=== PATIENT | female | born 1950 | race Caucasian/White ===

== ENCOUNTER 2019-08-28 04:51 | Inpatient (IN) ==
--- NOTE | 2019-08-08 11:22 | Anesthesiology Consultation ---
Date of Service August 08, 2019 Assessment & Plan Chart Review Chart Review: Acceptable Risk for Surgery, Pending: Refer to Additional Notes / Consult section (PAT [email or web address]) and Patient seen in Pre Admission Testing Consults Requested none ASA ASA3 Proposed Anesthesia Anesthesia Type: General and MAC Spinal Regional Regional Laterality: Left Site: Adductor Canal History Surgery Operation Date: 08/28/19 13:45 Proposed Procedures p Left Total Knee Arthroplasty - Wilman Wild MD Height/Weight Height: 5 ft 3 in Weight: 96.2 kg Allergies Allergy/AdvReac Type Severity Reaction Status Date / Time naproxen Allergy Severe can't Unverified 08/05/19 11:50 breath Penicillins Allergy Severe can't Unverified 08/05/19 11:50 breath cyclobenzaprine Allergy Intermediate palpitation Unverified 08/05/19 11:50 s adhesive Allergy Mild rash Unverified 08/05/19 11:50 trazodone Allergy Unknown DOES NOT Verified 08/05/19 11:50 KNOW REACTION, ONLY THAT IT WAS BAD! codeine AdvReac Mild insomnia Unverified 08/05/19 11:50 Medications Home Medications Medication Instructions Recorded Confirmed Last Taken Red [place] 1 cap PO DAILY PRN 08/05/19 08/05/19 Unknown Red Raspberry 1 cap PO DAILY PRN 08/05/19 08/05/19 Unknown atorvastatin 20 mg PO HS 08/05/19 08/05/19 Unknown buspirone 15 mg PO BID 08/05/19 08/05/19 Unknown calcium carbonate [Calcium 500] 500 mg PO QAM 08/05/19 08/05/19 Unknown escitalopram oxalate 10 mg PO QAM 08/05/19 08/05/19 Unknown escitalopram oxalate 20 mg PO QAM 08/05/19 08/05/19 Unknown glipizide 5 mg PO QAM 08/05/19 08/05/19 Unknown herbal drugs 2 tab PO QAM 08/05/19 08/05/19 Unknown levothyroxine 50 mcg PO QAM 08/05/19 08/05/19 Unknown lisinopril 5 mg PO QAM 08/05/19 08/05/19 Unknown vitamin B complex 1 tab PO DAILY PRN 08/05/19 08/05/19 Unknown vitamin E 800 unit PO QAM 08/05/19 08/05/19 Unknown Past Medical History Medical History Anxiety and depression Cardiac murmur Degenerative disc disease Diabetes mellitus, type 2 Fatty liver Hyperlipidemia Hypothyroidism Osteoarthritis Proteinuria "REASON FOR TAKING LISINOPRIL" Skin cancer LEFT SHOULDER AREA Sleep apnea CPAP USED Exercise / Class Metabolic Activity III < 4 Walking/Shop/Light housework Past Family History Family History Aunt Family history of diabetes mellitus Mother Family history of diabetes mellitus Past Surgical History Surgical History H/O bilateral salpingo-oophorectomy History of colonoscopy History of discectomy LUMBAR History of tooth extraction History of vaginal hysterectomy Past Anesthesia History No Hx of Anesthesia Complications and No Family Hx of Anesthesia Complications History of PONV No Hx of PONV and No Hx of Motion Sickness Social History Smoking Status: Former smoker Do You Dip or Chew Tobacco: No Smoking End Date: EARLY Hx Alcohol Use: No Hx Substance Use: No substance use type: does not use Physical Exam Vital Signs Last Vital Signs Temp 36.8 C 08/08/19 11:10 Pulse 57 L 08/08/19 11:10 Resp 18 08/08/19 11:10 BP 115/77 08/08/19 11:10 Pulse Ox 99 08/08/19 11:10 Constitutional + obese ENMT Mouth: no dentition abnormality Thyromental Distance: < 3.5 Finger Breadths Mallampati Class: II Neck normal visual inspection and trachea midline; neck extension not limited Respiratory normal respiratory effort Auscultation: lungs clear to auscultation bilaterally Cardiovascular Rate/Rhythm: regular rate and regular rhythm Heart Sounds: no murmur Vessels: no carotid bruit Musculoskeletal Spine: normal cervical ROM Neurologic moves all extremities Motor/Sensory: no sensory deficit Psychiatric Orientation: alert and oriented x 3 Testing Electrocardiogram Date: 08/08/19 Findings: + SB @ (at 56)
--- NOTE | 2019-08-08 12:09 | XRay Report ---
XR chest Pre-admission PA/Lat CLINICAL HISTORY: Preoperative chest COMPARISON STUDY: 03/17/2014 FINDINGS: The cardiac and mediastinal contours are normal. There is no evidence of focal pulmonary co nsolidation. There is no evidence of failure. No pleural effusions are visualized.[ IMPRESSION: No active disease in the chest. Electronically signed by: Miles Ahumada M.D. 08/08/2019 12:08 PM
[2019-08-08 14:50] LABS: Appearance Urine Cloudy (Clear); Bacteria Urine Automated 1+ (Negative); Bilirubin Urine Negative (Negative); Blood Urine Negative (Negative); Color Urine Yellow; Epithelial Cell Urine Auto >30 /lpf (0-5); Glucose Urine UA Negative (Negative); Ketones Urine Trace (Negative); Leukocyte Esterase Urine Trace (Negative); Nitrite Urine Negative (Negative); Protein Urine Negative (Negative); Specific Gravity Urine 1.028 (1.000-1.030); Urobilinogen Urine Negative (Negative)
[2019-08-08 14:54] LABS: Albumin Level 3.3 gm/dl (3.4-5.0); BUN Creatinine Ratio 19.5 (10-20); Calcium 8.7 mg/dl (8.5-10.1); Creatinine Clr Calc Pharmacy 72.6 ml/min; Est GFR (African American) 84.6; Potassium 3.8 mmol/L (3.5-5.1)
[2019-08-08 15:00] LABS: Hematocrit (blood only) 38.7 % (37-47); Hemoglobin 12.3 g/dL (12.0-16.0); Lymphocytes % (auto) 23.1 %; Mean Corpuscular Hemoglobin 30.6 pg (25-34); Mean Corpuscular Hgb Conc 31.8 g/dL (32-36); Mean Corpuscular Volume 96.3 fL (80-100); Mean Platelet Volume 12.6 fL (7.4-10.4); Neutrophils % (auto) 69.5 %; Platelet Count 154 K/uL (130-400); RDW Coefficient of Variation 14.7 % (11.5-14.5); RDW Standard Deviation 51.8 fL (36.4-46.3); Red Blood Count 4.02 M/uL (4.2-5.4); White Blood Count 6.75 K/uL (4.8-10.8)
[2019-08-08 15:01] LABS: Basophils # (auto) 0.03 K/uL (0-0.2); Basophils % (auto) 0.4 %; Eosinophils # (auto) 0.07 K/uL (0-0.5); Immature Granulocytes # (auto) 0.01 K/uL (0.00-0.02); Immature Granulocytes % (auto) 0.1 %; Lymphocytes # (auto) 1.56 K/uL (1.2-3.4); Monocytes % (auto) 5.9 %; Neutrophils # (auto) 4.68 K/uL (1.4-6.5)
[2019-08-08 15:02] LABS: Partial Thromboplastin Ratio 0.9
[2019-08-08 15:10] LABS: Calcium Oxalate Crystals Urine Present (None Prsent)
[2019-08-09 07:16] LABS: Estimated Average Glucose 148 mg/dl; Hemoglobin A1C 6.8 % (4.5-5.6)
--- NOTE | 2019-08-27 22:12 | History and Physical Report ---
DATE OF ADMISSION: 08/28/2019 CHIEF COMPLAINT: Chronic left knee pain and instability. HISTORY OF PRESENT ILLNESS: This is a 68-year-old female patient of Dr. Wild'goran complaining of chronic left knee pain, longstanding, now progressively getting worse. She has failed conservative treatments including intraarticular injections, Tylenol, home exercise program and the use of a brace. The patient has increased pain with weightbearing activities and her pain does interfere with her activities of daily living. The patient has been diagnosed with end-stage osteoarthritis per clinical and radiographic exams and wishes to proceed with a left total knee arthroplasty. PAST MEDICAL HISTORY: Heart murmur, sleep apnea with use of CPAP, anxiety, diabetes mellitus, hypothyroidism, spine problems, sciatica, obesity, dental issues. SOCIAL HISTORY: Nonsmoker, nondrinker. PAST SURGICAL HISTORY: Hysterectomy and back surgery. FAMILY HISTORY: Noncontributory. REVIEW OF SYSTEMS: Chronic left knee pain and instability. Otherwise, denies any shortness of breath, chest pain, nausea, vomiting, or any other joint complaints. MEDICATIONS: Escitalopram 20 mg daily, buspirone 15 mg twice daily, levothyroxine 50 mcg daily, glipizide 5 mg daily, lisinopril 5 mg daily, atorvastatin 20 mg daily, calcium 500 daily, vitamin E daily, vitamin B12 daily. ALLERGIES: INCLUDE METFORMIN, NAPROSYN, PENICILLIN, TRAZODONE, AND FLEXERIL. PLEASE NOTE PENICILLIN IS ANAPHYLAXIS, TRAZODONE IS ANAPHYLAXIS, FLEXERIL IS ANAPHYLAXIS. PHYSICAL EXAMINATION: GENERAL: Well-developed, well-nourished, 68-year-old female in no acute distress. She is alert and oriented x3 and pleasant. HEENT: Normocephalic, atraumatic. Extraocular motions are intact. Pupils are equal and reactive to light. HEART: Regular rate and rhythm, no murmurs. LUNGS: Clear. ABDOMEN: Soft, nontender, bowel sounds present. EXTREMITIES: Left knee reveals a varus deformity with medial joint line tenderness. She has a mild effusion. She has limited range of motion of negative 5 to 95 degrees. She has 5/5 strength with pain. NEUROLOGIC: Neurovascularly, she is intact in her left lower extremity. DIAGNOSES: Left knee end-stage osteoarthritis, history of heart murmur, sleep apnea with the use of CPAP, anxiety, diabetes mellitus, hypothyroidism, spine problems, sciatica, obesity, dental issues. PLAN: The patient was advised of her diagnosis. Indications, risks, benefits, postop course have all been reviewed. The patient wished to proceed with a left total knee arthroplasty. Necessary consent forms, preoperative testing, and clearances will be obtained.
[2019-08-28] MEDS ORDERED: ROPIVACAINE 0.5% HCL/PF 150 MG, BUPIVACAINE 0.5% MPF 30 ML, EPINEPHrine 30MG/30ML (OR U... INFIL SCH (06:00)
[2019-08-28] MEDS ORDERED: CeleBREX 200 MG CAP PO SCH (06:00)
[2019-08-28] MEDS ORDERED: GABAPENTIN 300 MG CAP PO SCH (06:00)
[2019-08-28] MEDS ORDERED: VANCOMYCIN HCL 1,500 MG in SODIUM CHLORIDE 0.9% 500 ML IV SCH ×2 (06:00→18:00)
[2019-08-28] MEDS ORDERED: LR 500ML BOLUS IV SCH (06:00)
[2019-08-28] MEDS ORDERED: METOCLOPRAMIDE HCL 10 MG TABLET PO SCH (06:00)
[2019-08-28] MEDS ORDERED: FAMOTIDINE 20 MG TAB PO SCH (06:00)
[2019-08-28] MEDS ORDERED: TRANEXAMIC ACID 1,000 MG **IV Pre-op IV SCH (06:00)
[2019-08-28] MEDS ORDERED: ACETAMINOPHEN 500 MG TAB PO SCH (06:00)
[2019-08-28] MEDS ORDERED: ROPIVACAINE 0.5% HCL/PF 150 MG, BUPIVACAINE 0.5% MPF 30 ML, EPINEPHrine 30MG/30ML (OR U... INSTIL SCH (06:00)
[2019-08-28] MEDS ORDERED: TRANEXAMIC ACID 1,000 MG **IV Intra-op IV SCH (06:30)
[2019-08-28] MEDS ORDERED: BUPIVACAINE 0.5 % 5 MG/1 ML PF 10ML VIAL ONE (06:31)
[2019-08-28] MEDS ORDERED: ROPIVACAINE 0.5% 5 MG/ML 30 ML VIAL ONE (06:31)
[2019-08-28] MEDS ORDERED: PROPOFOL IV EMULSION 10 MG/ML 20 ML VIAL IV ONE ×2 (06:39→07:58)
[2019-08-28] MEDS ORDERED: LIDOCAINE HCL 2% 2 ML VIAL/AMP(20MG/ML) INFIL ONE (06:39)
[2019-08-28] MEDS ORDERED: MIDAZOLAM HCL 1 MG/ML 2ML VIAL ONE (06:40)
[2019-08-28] MEDS ORDERED: fentaNYL citrate 100 MCG/2 ML VIAL ONE (06:40)
[2019-08-28] MEDS ORDERED: BACITRACIN INJ 50,000 UNIT VIAL ONE (06:40)
--- NOTE | 2019-08-28 07:10 | History & Physical Bridge Note ---
Date of Service August 28, 2019 History & Physical Bridge Note I have examined the patient, reviewed the History & Physical and in the interval since the performance of the History & Physical I have noted the following changes of clinical significance: no changes noted
[2019-08-28] MEDS ORDERED: ePHEDrine sulfate 50 MG/ML AMP IV PRN (07:29)
[2019-08-28] MEDS ORDERED: ATROPINE SULFATE 0.1 MG/ML 10ML SYR IV PRN (07:29)
[2019-08-28] MEDS ORDERED: ePHEDrine sulfate 50 MG/ML SYR ONE (07:58)
[2019-08-28] MEDS ORDERED: PHENYLEPHRINE 100MCG/ML 5ML SYR ONE (07:58)
--- NOTE | 2019-08-28 09:01 | Post Operative Brief Note ---
Immediate Post Op Note v1 Date of Surgery August 28, 2019 Pre & Post Diagnosis Operation Date: 08/28/19 07:00 Pre-Op Diagnosis: Primary Osteoarthritis, Left Knee Post-Op Diagnosis: Primary Osteoarthritis, Left Knee I personally identified the patient: Yes Procedure Operation Date: 08/28/19 07:00 Actual Procedures p Left Total Knee Arthroplasty(Left) - Wilman Wild MD Surgeon Wilman Wild MD Wood Gouger Murali MUNOZ Estimated Blood Loss 5 Findings Consistent with Post-Op Diagnosis Specimens Bone cuts Drains Hemovac Drain Anesthesia Type MAC Spinal Regional Complications none Disposition Accompanied Patient To Recovery: No Disposition: Recovery Room Overlapping Procedure I was present for: the critical portions of procedure.
--- NOTE | 2019-08-28 09:50 | XRay Report ---
TWO VIEWS LEFT KNEE CLINICAL HISTORY: Postoperative examination. FINDINGS: AP and crosstable lateral portable views of the left knee are obtained. A left knee arthrop lasty is in near anatomic alignment. There has been undersurface remodeling of the patella. No acute fracture is seen. There are expected postoperative changes around the knee including skin clips, a hernandez rgical drain, soft tissue edema, and subcutaneous gas. IMPRESSION: Expected postoperative changes status post left knee arthroplasty. No acute fracture is s een. Electronically signed by: Alvin Saxena M.D. 08/28/2019 9:48 AM
[2019-08-28] MEDS ORDERED: NALOXONE HCL 0.4 MG/1 ML VIAL/CARP IV PRN (11:10)
[2019-08-28] MEDS ORDERED: ONDANSETRON INJ 2 MG/ML 2 ML VIAL IV PRN (11:10)
[2019-08-28] MEDS ORDERED: VITAMIN B COMPLEX TAB PO PRN (11:10)
[2019-08-28] MEDS ORDERED: RED RASPBERRY PO PRN (11:10)
[2019-08-28] MEDS ORDERED: bisacodyL 10 MG SUPP PR PRN (11:10)
[2019-08-28] MEDS ORDERED: RED CLOVER PO PRN (11:10)
[2019-08-28] MEDS ORDERED: MAGNESIUM HYDROXIDE SUSP 30 ML UDC PO PRN (11:10)
[2019-08-28] MEDS ORDERED: VANCOMYCIN CONSULT ACTIVE PRN (11:10)
[2019-08-28] MEDS ORDERED: PHARMACY GLYCEMIC MGMT CONSULT PRN (11:21)
--- NOTE | 2019-08-28 12:12 | Consultation ---
Date of Consultation August 28, 2019 Assessment & Plan (1) S/P total knee arthroplasty: Post op day# 0 S/P Left TKA by Dr Torri RIVAS #5ml -pain management per ortho -wound management per ortho -PT/OT as appropriate -DVT prophylaxis per ortho - Xarelto 10mg daily -incentive spirometry -monitor H&H for acute blood loss anemia (2) Diabetes mellitus, type 2: A1c: 6.8 on 08/08/19 -Hold glipizide -Glycemic pharmacy consulted by ortho, appreciate pharmacy recommendations (3) HTN (hypertension): Stable -Will hold tomorrow morning lisinopril and monitor BP, renal functions (4) Hypothyroidism: TSH: 2.5 on 05/19/19 -Continue levothyroxine (5) Hyperlipidemia: -Continue atorvastatin (6) Sleep apnea: -Continue CPAP HS (7) Anxiety and depression: -Continue escitalopram, buspirone DVT Prophylaxis -Xarelto 10mg daily per ortho Disposition per primary service Follows with Rochelle Varner PA-C for routine care Pt was seen and care coordinated with Dr Booker. See addendum Thank you for this consultation. We will follow the patient with you during their hospital stay. You can reach a member of the [facility] via pager @ [phone]. Supervising Physician Co-Signing Physician Notes HISTORY: Record reviewed. Patient interviewed and examined in her room. Care coordinated with Tyra Ojeda PA-C. Please refer to her documentation for patient's history. Briefly, 68-year-old female who underwent left total knee arthroplasty earlier today. History of hypertension, sleep apnea, diabetes, and other problems as noted. Doing well postoperatively. No chest pain, cough, shortness of breath, nausea, vomiting. Postop pain well controlled. EXAM: General- no distress Lungs- clear to auscultation; no respiratory distress Cardiovascular- RRR; no murmur; no gallop; no JVD; no pretibial edema Abdomen- + bowel sounds, soft, nontender Extremities- no cyanosis; no calf tenderness; TEDS and SCDs applied Neuro- alert, oriented Skin- warm & dry DATA: Hemoglobin A1c was 6.8 on 08/08/2019. Glucose 143 at 1227 this afternoon. Other lab studies as noted. Chest x-ray performed on 08/08/2019 was unremarkable. EKG performed 08/08/2019 reviewed and demonstrated sinus bradycardia at 56/minute, no acute changes. ASSESSMENT AND PLAN: S/P left TKA. Doing well postop. Management of hypertension, sleep apnea, and DM as outlined in TAMMY Pitts's documentation. Thank you for this consultation. We will follow the patient with you during their hospital stay. My cell # is [phone]. You can reach a member of the [facility] Team 11/06 via pager @ [phone]. History of Present Illness Reason for Consultation: Post op medical management Attending Physician: Wilman Wild MD History of Present Illness Pt is 68 y/o F with PMH DM II, hypothyroidism, depression, ALISSON, obesity seen in medical consultation for post op medication management S/P L TKA today by Dr Wild. Post-op pt reports still with BLE numbness. Starting to feel like she can move her toes. No pain currently. No urination or passing flatus yet. Denies fever/chills, diaphoresis, N/V/D, GOFF, dizziness, syncope, vision changes, neck pain, CP, SOB, orthopnea, palpitations, cough, sore throat, choking, otalgia, rhinorrhea, abdominal pain, extremity edema, rashes. Allergies Allergy/AdvReac Type Severity Reaction Status Date / Time naproxen Allergy Severe can't Unverified 08/28/19 05:26 breath Penicillins Allergy Severe can't Unverified 08/28/19 05:26 breath cyclobenzaprine Allergy Intermediate palpitation Unverified 08/28/19 05:26 s adhesive Allergy Mild rash Unverified 08/28/19 05:26 trazodone Allergy Unknown DOES NOT Verified 08/28/19 05:26 KNOW REACTION, ONLY THAT IT WAS BAD! codeine AdvReac Mild insomnia Unverified 08/28/19 05:26 Home Medications Home Medications Medication Instructions Recorded Confirmed Type Red [place] 1 cap PO DAILY PRN 08/05/19 08/28/19 History Red Raspberry 1 cap PO DAILY PRN 08/05/19 08/28/19 History atorvastatin 20 mg PO HS 08/05/19 08/28/19 History buspirone 15 mg PO BID 08/05/19 08/28/19 History calcium carbonate [Calcium 500] 500 mg PO QAM 08/05/19 08/28/19 History escitalopram oxalate 10 mg PO QAM 08/05/19 08/28/19 History escitalopram oxalate 20 mg PO QAM 08/05/19 08/28/19 History glipizide 5 mg PO QAM 08/05/19 08/28/19 History herbal drugs 2 tab PO QAM 08/05/19 08/28/19 History levothyroxine 50 mcg PO QAM 08/05/19 08/28/19 History lisinopril 5 mg PO QAM 08/05/19 08/28/19 History vitamin B complex 1 tab PO DAILY PRN 08/05/19 08/28/19 History vitamin E 800 unit PO QAM 08/05/19 08/28/19 History Patient History Medical History HTN (hypertension) (Chronic) Degenerative disc disease (Chronic) Osteoarthritis (Chronic) Fatty liver (Chronic) Diabetes mellitus, type 2 (Chronic) Hypothyroidism (Chronic) Skin cancer (Chronic) LEFT SHOULDER AREA Anxiety and depression (Chronic) Hyperlipidemia (Chronic) Sleep apnea (Chronic) CPAP USED Cardiac murmur Proteinuria "REASON FOR TAKING LISINOPRIL" Surgical History H/O bilateral salpingo-oophorectomy (Chronic) History of vaginal hysterectomy (Chronic) History of discectomy (Chronic) LUMBAR History of colonoscopy (Chronic) History of tooth extraction (Chronic) Family History Aunt Family history of diabetes mellitus Mother Family history of diabetes mellitus Social History Preferred Language: Welsh Communication Ability: Effective Telegraph Equipment Maintainer Required: No Beliefs That Will Affect Care: None Current Living Situation: Spouse Other Information That Helps Us Care for You: No Feels Safe at Home: Yes Safety Concerns: Feels Safe At This Time Smoking Status: Former smoker Do You Dip or Chew Tobacco: No ; Smoking End Date: EARLY 20'S ; Second Hand Exposure: Yes ; Tobacco Cessation Education Requested by Patient: No Hx Alcohol Use: No Hx Substance Use: No Review of Systems Review of Systems: All systems reviewed & are unremarkable except as noted in HPI & below Physical Exam Physical Exam: General: no acute distress, obese Head: normocephalic, atraumatic Eyes: EOM's intact, conjunctiva non-injected, anicteric ENT: normal inspection external ears, nose, mucous membranes moist Neck: supple, trachea midline Lungs: clear, no respiratory distress, no wheezing/rhonchi/rales CV: RRR, no murmur, no pretibial edema Abd: normal BS, soft, non-tender Ext: no calf tenderness; Left lower leg with jj wrap and bandage in place; distal pulses palpable, able to wiggle toes Neuro: A&O x 3, no focal deficits noted, normal affect Skin: warm, dry Results & Data Vital Signs (Past 12 Hours) Vital Signs Temp Pulse Pulse Resp BP BP Pulse Ox 08/28/19 11:40 36.6 C 61 18 113/73 93 08/28/19 11:10 36.7 C 67 17 123/74 94 08/28/19 10:50 64 16 102/67 98 08/28/19 10:40 63 16 112/66 95 08/28/19 10:30 63 18 112/71 92 08/28/19 10:20 64 17 110/71 92 08/28/19 10:10 64 18 119/71 92 08/28/19 10:00 62 16 123/68 92 08/28/19 09:50 61 16 126/70 94 08/28/19 09:40 62 16 117/70 94 08/28/19 09:30 65 18 114/70 96 08/28/19 09:23 36 C L 71 18 106/71 98 08/28/19 05:40 36.5 C 53 L 18 130/71 96
[2019-08-28] MEDS ORDERED: DEXTROSE 50% 50 ML SYRINGE IV PRN (12:30)
[2019-08-28] MEDS ORDERED: GLUCOSE 40% GEL 15 GM TUBE PO PRN (12:30)
[2019-08-28] MEDS ORDERED: GLUCOSE 10 TABS/TUBE PO PRN (12:30)
[2019-08-28] MEDS ORDERED: GLUCAGON FOR INJ 1 MG VIAL SQ PRN (12:30)
[2019-08-28] MEDS ORDERED: CARBOHYDRATES FOR HYPOGLYCEMIA PO PRN (12:30)
--- NOTE | 2019-08-28 12:38 | Anesthesiology Progress Note ---
Date of Service August 28, 2019 Anesthesia Post Procedure Vital Signs Vital Signs: Temp Pulse Pulse Resp BP BP Pulse Ox 08/28/19 12:19 36.7 C 64 16 111/71 95 08/28/19 11:40 36.6 C 61 18 113/73 93 08/28/19 11:10 36.7 C 67 17 123/74 94 08/28/19 10:50 64 16 102/67 98 08/28/19 10:40 63 16 112/66 95 08/28/19 10:30 63 18 112/71 92 08/28/19 10:20 64 17 110/71 92 08/28/19 10:10 64 18 119/71 92 08/28/19 10:00 62 16 123/68 92 08/28/19 09:50 61 16 126/70 94 08/28/19 09:40 62 16 117/70 94 08/28/19 09:30 65 18 114/70 96 08/28/19 09:23 36 C L 71 18 106/71 98 08/28/19 05:40 36.5 C 53 L 18 130/71 96 Transfer of Care Handoff Completed per policy Notes Mental Status: alert / awake / arousable and participated in evaluation Patient Amnestic to Procedure: Yes Nausea / Vomiting: adequately controlled Pain: adequately controlled Airway Patency, RR, SpO2: stable & adequate BP & HR: stable & adequate Hydration State: stable & adequate Neuraxial Anesthesia: was administered and sensory block is resolving Anesthetic Complications: no major complications apparent
--- NOTE | 2019-08-28 13:38 | Pharmacy Report ---
Glycemic Control Consultation - Date of Service August 28, 2019 - Scope Scope: Glycemic Pharmacist consulted by THERESA Landon on 08/28 for glycemic control and to write orders per [facility] inpatient glycemic control protocol - Objective Weight: 96.275 kg Accuchecks BSG (last 24hrs): 08/28/19 08/28/19 05:16 09:29 POC Glucose 126 H 133 H HbA1c: Hemoglobin A1c 6.8 % (4.5-5.6) H 08/08/19 11:08 - Recent Pertinent Medications Outpatient Anti-diabetic Regimen: * Glipizide 5 mg qAM * A1c = 6.8 % 08/08/19 Risk Factors for Insulin Resistance: * Recent Surgery: POD 0 s/p L TKA * Diet: t2dm - Assessment & Plan Assessment & Plan: ASSESSMENT: * 68 y/o female admitted s/p L TKA, with history of well controlled type 2 diabetes. Other than the stress of surgery, patient has no additional stressors on board postop to increase BSGs. * Pt is maintained on oral antidiabetic agents as an outpatient * Oral agents are not recommended for inpatient use d/t drug interactions, changing PO intake, and difficulty titrating for acute hyper/hypoglycemia. ADA recommends re-initiating outpatient oral agents 1-2 days prior to discharge if/when appropriate if they were held on admission. * Will hold oral agents for admission and utilize SQ basal bolus insulin regimen which is the recommended regimen for inpatient glycemic control. * Will initiate weight based insulin dosing for insulin sera patient and titrate based on BSG trends. * Will plan to utilize bolus insulin only and implement basal insulin if BSGs > 180 mg/dL PLAN FOR INPATIENT GLYCEMIC CONTROL: * Holding outpatient oral diabetes medications * Bolus insulin * NovoLog per scale ACHS or Q6hrs while NPO * Goal Range: Low 110 mg/dL - High 140 mg/dL * Correction Factor: 25 mg/dL/unit * Nutritional / Prandial insulin per carb ratio of 1 unit per 8 grams CHO consumed Discharge Recommendations: * A1c of 6.8% on 08/08/19 * Goal A1c < 7% is recommended for age/comorbidities * Continue glipizide on discharge Thank you.
[2019-08-28] MEDS: ACETAMINOPHEN 500 MG TAB PO SCH ×2 (13:44→20:55)
[2019-08-28] MEDS: SODIUM CHLORIDE 0.9% 1000ML 1,000 ML IV SCH ×2 (13:45→21:31)
[2019-08-28] MEDS: INSULIN ASPART 100 UNITS/ML 3 ML PEN SC SCH ×3 (13:46→21:19)
[2019-08-28] MEDS: OXYCODONE HCL IR 5 MG TAB (IMMEDIATE RELEASE) PO PRN ×2 (14:22→20:58)
--- NOTE | 2019-08-28 17:57 | Operative Report ---
Post Operative Report Pre & Post Diagnosis Operation Date: 08/28/19 07:00 Pre-Op Diagnosis: Primary Osteoarthritis, Left Knee Post-Op Diagnosis: Primary Osteoarthritis, Left Knee I personally identified the patient: Yes Procedure Operation Date: 08/28/19 07:00 Actual Procedures p Left Total Knee Arthroplasty(Left) - Wilman Wild MD Surgeon Wilman Wild MD Die Turner Murali MUNOZ Estimated Blood Loss 5 Findings Consistent with Post-Op Diagnosis Specimens Bone cuts Drains 2 Hemovac Anesthesia Type MAC Spinal Regional Complications none Disposition Accompanied Patient To Recovery: No Disposition: Recovery Room Indications 68-year-old female with chronic progressive osteoarthritis left knee greater than right. Patient has a varus knee tricompartmental osteoarthritis [id number] medial compartment Description of Procedure Patient taken to the operating room the size under spinal MAC regional anesthesia. Patient was placed supine on the operating table. A pneumatic tourniquet was placed about the left upper thigh. The left lower extremity was prepped and draped in sterile fashion. Knee exam demonstrated stiff knee with - 10 to 100 degrees range of motion mild varus alignment. The leg was elevated exsanguinated with an Esmarch bandage and pneumatic tourniquet was raised to 325 millimeters of mercury. Skin incised sharply in longitudinal fashion. Subcutaneous flaps elevated. Incision was made through the medial retinaculum extending up in the mid third of the quadriceps tendon and down to the medial tibial tubercle. Intra-articular findings demonstrated severe tricompartmental OA with chronic ACL tear large patellofemoral osteophytes [id number] medial compartment. The Skubana triathlon total knee arthroplasty system was used. To expose the knee the infrapatellar fat pad was resected. The meniscal remnants and cruciate ligaments were resected. The anterior fat pad over the femur in the area of the anterior flange of the femoral component was resected. Lateral synovial bands release. The femur was exposed. An intramedullary drill hole was made into the canal. A guide mary was placed. Distal femoral cutting guide was adjusted to resect a 5 degree valgus cut with 10 millimeters distal femur resected. The knee was extended and a subperiosteal peel lateral release was performed around the patella. Patella width was measured and width was reproduced using a freehand cut technique and a 33 x 9 symmetrical patella component. The 3 drill holes were made and the excess lateral facet was beveled off to prevent any impingement. Attention was taken back to the femur which was exposed with retractors and the femoral sizing guide was pinned in position. The drill holes were placed in 3 of external rotation to match epicondylar axis. Femur sized for a 4 posterior stabilized component. The 4-in-1 cutting block was placed and then the anterior posterior and chamfer cuts are made. The tibia was then subluxed. The external tibial cutting guide was just to make a perpendicular cut to the long axis of the tibia below the most deficient bone lo ss side. A lamina drum stenciler was used and the flexion extension gaps were balanced. All posterior osteophytes removed. All meniscal remnants were resected. The tibia exposed and the trial tibial component size 3 was externally rotated in line with the tibial tubercle and pinned in position. The punch for stem was used. The notch cutting device was centered appropriately and the femoral notch cut was made. The femoral trial was inserted. Trial tibial inserts were placed and size 11 mm gave balanced ligaments through flexion and extension. Patella tracking was assessed. The patella tracked centrally. The trial components were then removed and the orthomix anesthetic cocktail was injected per protocol. The knee was then copiously irrigated with pulsatile lavage antibiotic solution. Final components were then cemented with Simplex cement. Final components were for left posterior stabilized triathlon femoral component triathlon 3 primary tibial baseplate with X3 polyethylene 3 x 11 mm posterior stabilized tibial bearing insert and the S 33 x 9 mm X3 polyethylene patella. While the cement cured the Betadine soak was used per protocol. After cement cured further pulsatile lavage irrigation performed and 2 Hemovac drains were brought out laterally. The quadriceps tendon and medial retinaculum were closed with figure of 8 #1 Vicryl sutures. The knee was taken through full range of motion and the repair was secure. The subcutaneous tissues were closed with 2-0 Vicryl sutures. Skin was closed with mandi. Sterile dressings were applied. Patient procedure well. Murali MUNOZ was my physician assistant superintendent who assisted in patient positioning prepping and draping,leg positioning ,soft tissue retraction and instrument management and participated in the closing and will participate in postoperative care of the patient. The patient tolerated the procedure well. I attest to the content of the Intraoperative Record and any orders documented therein. Any exceptions are noted below.
[2019-08-28] MEDS: SENNA 8.6 MG TAB PO SCH (20:55)
[2019-08-28] MEDS: BusPIRone 15 MG TAB PO SCH (20:55)
[2019-08-28] MEDS: ATORVASTATIN 20 MG TAB PO SCH (20:55)
[2019-08-28] MEDS: DOCUSATE SODIUM 100 MG CAP PO SCH (20:58)
[2019-08-29 05:24] LABS: Hemoglobin 10.2 g/dL (12.0-16.0); Mean Corpuscular Hemoglobin 30.7 pg (25-34); Mean Corpuscular Hgb Conc 31.9 g/dL (32-36); Mean Corpuscular Volume 96.4 fL (80-100); Platelet Count 136 K/uL (130-400); RDW Coefficient of Variation 14.1 % (11.5-14.5); RDW Standard Deviation 49.7 fL (36.4-46.3); Red Blood Count 3.32 M/uL (4.2-5.4); White Blood Count 9.74 K/uL (4.8-10.8)
[2019-08-29] MEDS: ACETAMINOPHEN 500 MG TAB PO SCH ×3 (05:35→21:39)
[2019-08-29] MEDS: LEVOTHYROXINE SODIUM 50 MCG TABLET PO SCH (05:36)
[2019-08-29 05:50] LABS: BUN Creatinine Ratio 18.3 (10-20); Calcium 7.8 mg/dl (8.5-10.1); Creatinine Clr Calc Pharmacy 82.6 ml/min; Est GFR (African American) 98.8; Est GFR (Non-African American) 85.2; Potassium 4.1 mmol/L (3.5-5.1)
[2019-08-29] MEDS: OXYCODONE HCL IR 5 MG TAB (IMMEDIATE RELEASE) PO PRN ×2 (08:20→20:35)
[2019-08-29] MEDS: RIVAROXABAN 10 MG TABLET PO SCH (09:03)
[2019-08-29] MEDS: BusPIRone 15 MG TAB PO SCH ×2 (09:03→20:36)
[2019-08-29] MEDS: TOCOPHERYL, DL-ALPHA 400 UNITS CAP PO SCH (09:03)
[2019-08-29] MEDS: MULTIVITAMIN TAB PO SCH (09:04)
[2019-08-29] MEDS: ESCITALOPRAM OXALATE 10 MG TAB PO SCH (09:04)
[2019-08-29] MEDS: ESCITALOPRAM OXALATE 20 MG TAB PO SCH (09:04)
[2019-08-29] MEDS: CALCIUM CARBONATE 1250MG TAB PO SCH (09:04)
--- NOTE | 2019-08-29 09:04 | Orthopedic Progress Note ---
Date of Service August 29, 2019 Assessment & Plan (1) S/P total knee arthroplasty: POD #1, Left TKA PT/ OT DVT proph- Xarelto D/C panning- Home w OPPT As per medicine. Subjective POD #1, Feeling well, some pain. Pain medication working when taking. Denies SOB, CP, N/V. Wishes OPPT. Physical Exam Physical Exam: Left knee dressings c/d/i, no drainage, drain in tact. Toes/ ankle mobile. No calf tenderness. N/V+. A&Ox3. Results & Data Vital Signs (Past 12 Hours) Vital Signs Temp Pulse Pulse Resp BP Pulse Ox 08/29/19 07:45 36.9 C 68 16 92/59 L 92 08/29/19 03:57 37.2 C 64 18 99/62 L 93 08/28/19 23:07 96 08/28/19 23:02 94 08/28/19 23:00 37.6 C H 75 17 97/62 L 80 L
[2019-08-29] MEDS: INSULIN ASPART 100 UNITS/ML 3 ML PEN SC SCH ×4 (09:07→20:49)
[2019-08-29] MEDS: DOCUSATE SODIUM 100 MG CAP PO SCH ×2 (09:12→20:40)
--- NOTE | 2019-08-29 09:33 | Pharmacy Report ---
Pharmacy Glycemic Short Note 2 - Date of Service August 29, 2019 - Glycemic Short BSG Results (Last 24 hours): 08/28/19 08/28/19 08/28/19 09:29 12:27 17:09 Glucose POC Glucose 133 H 143 H 130 H 08/28/19 08/29/19 08/29/19 20:35 04:57 08:13 Glucose 126 H POC Glucose 163 H 153 H OUTPATIENT ANTIDIABETIC REGIMEN: * Glipizide 5 mg qAM ASSESSMENT: 08/29 * Ms. Sifuentes is POD 1 s/p TKA * She received 13 units of insulin yesterday, all of this being bolus insulin * Fasting on PRP is 126 mg/dL; POC was up to 153 mg/dL but looks like she had some PO intake of fluids early this morning that may have contributed to the increase. Will hold off on adding basal for now. * Postprandials slightly above goal yesterday. Goal is < 150 mg/dL postoperatively to prevent infection related complications 08/28 * 68 y/o female admitted s/p L TKA, with history of well controlled type 2 diabetes. Other than the stress of surgery, patient has no additional stressors on board postop to increase BSGs. * Pt is maintained on oral antidiabetic agents as an outpatient * Oral agents are not recommended for inpatient use d/t drug interactions, changing PO intake, and difficulty titrating for acute hyper/hypoglycemia. ADA recommends re-initiating outpatient oral agents 1-2 days prior to discharge if/when appropriate if they were held on admission. * Will hold oral agents for admission and utilize SQ basal bolus insulin regimen which is the recommended regimen for inpatient glycemic control. * Will initiate weight based insulin dosing for insulin sera patient and titrate based on BSG trends. * Will plan to utilize bolus insulin only and implement basal insulin if BSGs > 180 mg/dL PLAN FOR INPATIENT GLYCEMIC CONTROL: * Continue to hold outpatient oral diabetes medications - consider resuming tomorrow if close to discharge * Bolus insulin - tighten CR based on postprandial BSG trend yesterday * NovoLog per scale ACHS or Q6hrs while NPO * Goal Range: Low 110 mg/dL - High 140 mg/dL * Correction Factor: 25 mg/dL/unit * Nutritional / Prandial insulin per carb ratio of 1 unit per 7 grams CHO consumed PLAN FOR DISCHARGE: * see 08/28 note
--- NOTE | 2019-08-29 09:43 | Anesthesiology Progress Note ---
Date of Service August 29, 2019 Anesthesia Post Procedure Vital Signs Vital Signs: Temp Pulse Pulse Resp BP Pulse Ox 08/29/19 07:45 36.9 C 68 16 92/59 L 92 08/29/19 03:57 37.2 C 64 18 99/62 L 93 08/28/19 23:07 96 08/28/19 23:02 94 08/28/19 23:00 37.6 C H 75 17 97/62 L 80 L 08/28/19 19:39 92 08/28/19 19:37 37.0 C 75 17 98/62 L 84 L 08/28/19 15:45 36.8 C 62 20 125/77 92 08/28/19 14:16 36.7 C 62 16 96/60 L 96 08/28/19 13:16 63 16 102/67 97 08/28/19 12:19 36.7 C 64 16 111/71 95 08/28/19 11:40 36.6 C 61 18 113/73 93 08/28/19 11:10 36.7 C 67 17 123/74 94 08/28/19 10:50 64 16 102/67 98 08/28/19 10:40 63 16 112/66 95 08/28/19 10:30 63 18 112/71 92 08/28/19 10:20 64 17 110/71 92 08/28/19 10:10 64 18 119/71 92 08/28/19 10:00 62 16 123/68 92 08/28/19 09:50 61 16 126/70 94 Notes Mental Status: alert / awake / arousable and participated in evaluation Nausea / Vomiting: adequately controlled Pain: adequately controlled Airway Patency, RR, SpO2: stable & adequate BP & HR: stable & adequate Hydration State: stable & adequate Neuraxial Anesthesia: sensory block resolved
--- NOTE | 2019-08-29 10:25 | Hospitalist Progress Note ---
Date of Service August 29, 2019 Assessment & Plan (1) S/P total knee arthroplasty: - POD#[address] Wild - activity and wound care orders as per ortho - pain control with bowel regimen - PT/OT - monitor H/H for acute blood loss anemia and transfuse blood products PRN - Preop Hgb 12.3 -> 10.2 today - EBL 5 cc, CAROLANN drain output 295cc to date (2) Diabetes mellitus, type 2: -HgbA1c 6.8 08/08/19 -Hold glipizide -Glycemic pharmacy consulted by ortho, appreciate pharmacy recommendations (3) HTN (hypertension): -BP borderline low with systolics running in the high 90s, patient asymptomatic -Low BP possibly secondary to medications; Hgb stable -Hold lisinopril -Monitor orthostatic BPs (4) Hypothyroidism: -Continue levothyroxine (5) Hyperlipidemia: -Continue atorvastatin (6) Sleep apnea: -CPAP as per home settings (7) Anxiety and depression: -Continue escitalopram, buspirone (8) DVT prophylaxis: -Xarelto as per orthopedics Supervising Physician Co-Signing Physician Notes I have seen and examined the patient and have discussed the case with the provider above. I agree with the assessment and plan as stated. 68 yo F s/p L TKA by Dr. Wild and doing well post operatively with pain well-controlled. She just finished therapy. Denies chest pain, shortness of breath or other symptoms. Physical exam is unremarkable aside from L knee immobilized with NEAL wrap. cont plan as above. Terry, DO Subjective Patient seen and examined. Up sitting in the chair, no acute distress. Just worked with therapy and having some knee pain. Reports pain medication is working when taken. Denies chest pain and shortness of breath. No lightheadedness or dizziness. No abdominal pain or nausea. Passing flatus, no bowel movement. Urinating without difficulty. Physical Exam Constitutional: no acute distress Sitting up in the chair Respiratory: normal respiratory effort, lungs clear to auscultation Cardiovascular: Rate/Rhythm: regular rate and regular rhythm Vessels: normal peripheral pulses Extremities: no edema Gastrointestinal (Abdomen): Inspection/Auscultation: normal bowel sounds Percussion/Palpation: abdomen soft; abdomen nontender Musculoskeletal: S/P left knee surgery, dressing dry and intact, drain in place draining bloody drainage, CSM checks intact Psychiatric: Orientation: alert and oriented x 3 Results & Data Vital Signs (Past 12 Hours) Vital Signs Temp Pulse Pulse Resp BP Pulse Ox 08/29/19 07:45 36.9 C 68 16 92/59 L 92 08/29/19 03:57 37.2 C 64 18 99/62 L 93 08/28/19 23:07 96 08/28/19 23:02 94 08/28/19 23:00 37.6 C H 75 17 97/62 L 80 L Laboratory Results Short CBC 08/29/19 Range/Units 04:57 WBC 9.74 (4.8-10.8) K/uL Hgb 10.2 L (12.0-16.0) g/dL Hct 32.0 L (37-47) % Plt Count 136 (130-400) K/uL BMP 08/29/19 04:57 Sodium 141 Potassium 4.1 Chloride 109 H Carbon Dioxide 26 BUN 13 Creatinine 0.73 Glucose 126 H Calcium 7.8 L
[2019-08-29] MEDS: HYDROmorphone INJ 0.5 MG/0.5 ML SYR IV PRN ×2 (11:00→15:43)
[2019-08-29] MEDS: SENNA 8.6 MG TAB PO SCH (20:36)
[2019-08-29] MEDS: ATORVASTATIN 20 MG TAB PO SCH (20:37)
[2019-08-30] MEDS: OXYCODONE HCL IR 5 MG TAB (IMMEDIATE RELEASE) PO PRN ×5 (00:53→22:19)
[2019-08-30 05:25] LABS: Hemoglobin 9.8 g/dL (12.0-16.0); Mean Corpuscular Hemoglobin 30.4 pg (25-34); Mean Corpuscular Hgb Conc 31.6 g/dL (32-36); Mean Corpuscular Volume 96.3 fL (80-100); Mean Platelet Volume 11.4 fL (7.4-10.4); Platelet Count 124 K/uL (130-400); RDW Coefficient of Variation 14.1 % (11.5-14.5); RDW Standard Deviation 49.9 fL (36.4-46.3); Red Blood Count 3.22 M/uL (4.2-5.4); White Blood Count 9.92 K/uL (4.8-10.8)
[2019-08-30 05:51] LABS: BUN Creatinine Ratio 15.9 (10-20); Calcium 8.3 mg/dl (8.5-10.1); Creatinine Clr Calc Pharmacy 87.4 ml/min; Est GFR (African American) 104.4; Est GFR (Non-African American) 90.1; Potassium 3.8 mmol/L (3.5-5.1)
[2019-08-30] MEDS: LEVOTHYROXINE SODIUM 50 MCG TABLET PO SCH (06:23)
[2019-08-30] MEDS: ACETAMINOPHEN 500 MG TAB PO SCH ×3 (06:23→21:27)
--- NOTE | 2019-08-30 06:30 | Orthopedic Progress Note ---
Date of Service August 30, 2019 Assessment & Plan (1) S/P total knee arthroplasty: POD #2, Left TKA PT/ OT DVT proph- Xarelto D/C panning- Home w OPPT As per medicine. recheck after PT today for poss d/c home. Subjective POD #2 laying in bed, no acute distress. Reports pain medication is working when taken. Denies chest pain and shortness of breath. No lightheadedness or dizziness. Physical Exam Physical Exam: Vital Signs Temp Pulse Pulse Pulse Resp BP Pulse Ox 08/29/19 23:20 95 08/29/19 23:08 37.1 C 81 18 109/70 86 L 08/29/19 14:58 36.8 C 76 18 113/70 92 08/29/19 13:29 94 08/29/19 10:59 36.8 C 67 16 109/69 93 08/29/19 07:45 36.9 C 68 16 92/59 L 92 Intake and Output 08/29/19 08/29/19 08/30/19 14:59 22:59 06:59 Intake Total 440 / 915 125 / 915 350 / 915 Output Total 400 / 545 100 / 545 45 / 545 Balance 40 / 370 25 / 370 305 / 370 Intake: Oral 440 / 915 125 / 915 350 / 915 Output: Urine 400 / 400 Drain Output 100 / 145 45 / 145 Left Knee 100 / 145 45 / 145 Other: # Unmeasured Voi ds 1 1 1 Constitutional: WD/WN, vitals as above no acute distress Musculoskeletal: left knee: NVDI, calf SNT, negative brandt sign. DP palpable, able to wiggle toes/ankle movement without difficulty. Incision is clean and dry, there is no drainage. expected post-operative bruising noted. Results & Data Vital Signs (Past 12 Hours) Vital Signs Temp Pulse Resp BP Pulse Ox 08/29/19 23:20 95 08/29/19 23:08 37.1 C 81 18 109/70 86 L
[2019-08-30] MEDS: TOCOPHERYL, DL-ALPHA 400 UNITS CAP PO SCH (07:37)
[2019-08-30] MEDS: MULTIVITAMIN TAB PO SCH (07:37)
[2019-08-30] MEDS: ESCITALOPRAM OXALATE 20 MG TAB PO SCH (07:37)
[2019-08-30] MEDS: CALCIUM CARBONATE 1250MG TAB PO SCH (07:37)
[2019-08-30] MEDS: RIVAROXABAN 10 MG TABLET PO SCH (07:37)
[2019-08-30] MEDS: ESCITALOPRAM OXALATE 10 MG TAB PO SCH (07:37)
[2019-08-30] MEDS: BusPIRone 15 MG TAB PO SCH ×2 (07:37→21:24)
[2019-08-30] MEDS: DOCUSATE SODIUM 100 MG CAP PO SCH ×2 (09:10→21:30)
[2019-08-30] MEDS: INSULIN ASPART 100 UNITS/ML 3 ML PEN SC SCH ×4 (09:11→21:25)
[2019-08-30] MEDS: lisinopriL 5 MG TAB PO SCH (11:25)
--- NOTE | 2019-08-30 14:29 | Hospitalist Progress Note ---
Date of Service August 30, 2019 Assessment & Plan (1) S/P total knee arthroplasty: - POD#[address] Wild - activity and wound care orders as per ortho - pain control with bowel regimen - PT/OT (2) Postoperative anemia: No indication for blood transfusion and asymptomatic. No overt bleeding, cont to monitor with CBC (3) Diabetes mellitus, type 2: -HgbA1c 6.8 08/08/19 -Hold glipizide -Glycemic pharmacy consulted by ortho, appreciate pharmacy recommendations (4) HTN (hypertension): BP improved to baseline. Restarted her lisinopril per home regimen. (5) Hypothyroidism: -Continue levothyroxine (6) Hyperlipidemia: -Continue atorvastatin (7) Sleep apnea: -CPAP as per home settings (8) Anxiety and depression: -Continue escitalopram, buspirone (9) DVT prophylaxis: -Xarelto Full Dispo-pending Surgery team, poss to rehab Thank you for the consultation. We will continue to follow this patient while she is hospitalized. Ellen Stewart DO [facility] Hopsitalist Subjective 68 yo F s/p L TKA post-op day 2, doing well but sore as just finished working with therapy Denies CP, SOB or other issues today Tolerating PO Review of Systems Review of Systems: All systems reviewed & are unremarkable except as noted in HPI & below Physical Exam Physical Exam: Constitutional: no acute distress Sitting up in the chair Respiratory: normal respiratory effort, lungs clear to auscultation Cardiovascular: Rate/Rhythm: regular rate and regular rhythm Vessels: normal peripheral pulses Extremities: no edema Gastrointestinal (Abdomen): Inspection/Auscultation: normal bowel sounds Percussion/Palpation: abdomen soft; abdomen nontender Musculoskeletal: S/P left knee surgery, dressing dry and intact, drain in place draining bloody drainage, CSM checks intact Psychiatric: Orientation: alert and oriented x 3 Results & Data Vital Signs (Past 12 Hours) Vital Signs Temp Pulse Resp BP Pulse Ox 08/30/19 07:28 37.0 C 72 17 133/76 93 Laboratory Results Short CBC 08/30/19 Range/Units 04:56 WBC 9.92 (4.8-10.8) K/uL Hgb 9.8 L (12.0-16.0) g/dL Hct 31.0 L (37-47) % Plt Count 124 L (130-400) K/uL BMP 08/30/19 04:56 Sodium 137 Potassium 3.8 Chloride 105 Carbon Dioxide 27 BUN 11 Creatinine 0.69 Glucose 148 H Calcium 8.3 L Medications Administered Current Inpatient Medications Acetaminophen (Tylenol) 1,000 mg PO Q8 [facility] Stop: 09/27/19 13:59 Last Admin: 08/30/19 13:20 Dose: 1,000 mg Documented by: Atorvastatin Calcium (Lipitor) 20 mg PO HS FÁTIMA Stop: 09/27/19 20:59 Last Admin: 08/29/19 20:37 Dose: 20 mg Documented by: Bisacodyl (Dulcolax) 10 mg ID DAILY PRN PRN Reason: Constipation Stop: 09/27/19 11:09 Buspirone HCl (Buspar) 15 mg PO BID [facility] Stop: 09/27/19 20:59 Last Admin: 08/30/19 07:37 Dose: 15 mg Documented by: Calcium Carbonate (Os-Chandana 500) 1,250 mg PO QAM [facility] Stop: 09/28/19 08:59 Last Admin: 08/30/19 07:37 Dose: 1,250 mg Documented by: Dextrose (Dextrose 50%) 25 - 50 ml IV UD PRN; Protocol PRN Reason: Hypoglycemia Protocol Stop: 09/27/19 12:29 Diphenhydramine HCl (Benadryl Capsule) 25 mg PO Q8H PRN PRN Reason: Itching Stop: 09/27/19 11:09 Docusate Sodium (Colace) 100 mg PO BID FÁTIMA Stop: 09/27/19 20:59 Last Admin: 08/30/19 09:10 Dose: 100 mg Documented by: Escitalopram Oxalate (Lexapro Tab) 10 mg PO QAM [facility] Stop: 09/28/19 08:59 Last Admin: 08/30/19 07:37 Dose: 10 mg Documented by: Escitalopram Oxalate (Lexapro Tab) 20 mg PO QAM [facility] Stop: 09/28/19 08:59 Last Admin: 08/30/19 07:37 Dose: 20 mg Documented by: Glucagon (Glucagen) 1 mg SQ UD PRN; Protocol PRN Reason: Hypoglycemia Protocol Stop: 09/27/19 12:29 Glucose (Glucose 40%) 15 - 30 gm PO UD PRN; Protocol PRN Reason: Hypoglycemia Protocol Stop: 09/27/19 12:29 Glucose (Dex4 Glucose) 4 - 8 tabs PO UD PRN; Protocol PRN Reason: Hypoglycemia Protocol Stop: 09/27/19 12:29 Hydromorphone HCl (Dilaudid) 0.5 mg IV Q4H PRN PRN Reason: Pain Stop: 09/11/19 11:09 Last Admin: 08/29/19 15:43 Dose: 0.5 mg Documented by: Insulin Aspart (Novolog Flexpen) 0 units [facility]; Protocol Stop: 09/27/19 12:29 Last Admin: 08/30/19 13:17 Dose: 6 units Documented by: [facility]othy[facility]ine [facility]) [facility]: 09/28/19 06:29 Last Admin: 08/30/19 06:23 Dose: 50 mcg Documented by: [facility]) [facility] Stop: 09/28/19 08:59 Last Admin: 08/30/19 11:25 Dose: 5 mg Documented by: Magnesium Hydroxide (Milk Of Magnesia) 30 ml PO Q6H PRN PRN Reason: Constipation Stop: 09/27/19 11:09 Miscellaneous (Carbohydrates For Hypoglycemia) 15 - 30 gm PO UD PRN PRN Reason: Hypoglycemia Treatment Stop: 09/27/19 12:29 Miscellaneous Information (Consult Glycemic Management Pharmacy) 1 ea N/A UD PRN PRN Reason: Consult Stop: 09/27/19 11:20 Multivitamins (Multivitamin Tab) 1 tab PO [facility] Stop: 09/28/19 08:59 Last Admin: 08/30/19 07:37 Dose: 1 tab Documented by: Naloxone HCl (Narcan) 0.1 mg IV Q5M PRN PRN Reason: Oversedation/Resp Depression Stop: 09/27/19 11:09 Ondansetron HCl (Zofran) 4 mg IV Q6H PRN PRN Reason: Nausea And Vomiting Stop: 09/27/19 11:09 Oxycodone HCl (Roxicodone Immediate Rel) 5 - 10 mg PO Q4H PRN PRN Reason: Pain Stop: 09/11/19 11:09 Last Admin: 08/30/19 11:24 Dose: 10 mg Documented by: Rivaroxaban (Xarelto) 10 mg PO DAILY [facility] Stop: 09/28/19 08:59 Last Admin: 08/30/19 07:37 Dose: 10 mg Documented by: Sennosides (Senokot) 17.2 mg PO [facility] Stop: 09/27/19 20:59 Last Admin: 08/29/19 20:36 Dose: 17.2 mg Documented by: Vitamin B Complex (Vitamin B Complex) 1 tab PO DAILY PRN PRN Reason: IF NEEDING MORE ENERGY Vitamin E (Vitamin E) [facility] Stop: 09/28/19 08:59 Last Admin: 08/30/19 07:37 Dose: 800 units Documented by:
[2019-08-30] MEDS: SENNA 8.6 MG TAB PO SCH (21:26)
[2019-08-30] MEDS: ATORVASTATIN 20 MG TAB PO SCH (21:27)
[2019-08-31] MEDS: OXYCODONE HCL IR 5 MG TAB (IMMEDIATE RELEASE) PO PRN ×4 (05:25→23:55)
[2019-08-31 05:38] LABS: Hematocrit (blood only) 29.4 % (37-47); Hemoglobin 9.3 g/dL (12.0-16.0); Mean Corpuscular Hemoglobin 30.5 pg (25-34); Mean Corpuscular Hgb Conc 31.6 g/dL (32-36); Mean Corpuscular Volume 96.4 fL (80-100); Mean Platelet Volume 11.6 fL (7.4-10.4); Platelet Count 133 K/uL (130-400); RDW Coefficient of Variation 14.2 % (11.5-14.5); RDW Standard Deviation 49.6 fL (36.4-46.3); Red Blood Count 3.05 M/uL (4.2-5.4); White Blood Count 8.23 K/uL (4.8-10.8)
[2019-08-31] MEDS ORDERED: MoRPHine SULFATE 4 MG/ML 1 ML CARP\\VIAL IV PRN (05:44)
[2019-08-31] MEDS: ACETAMINOPHEN 500 MG TAB PO SCH ×3 (06:17→21:31)
[2019-08-31] MEDS: LEVOTHYROXINE SODIUM 50 MCG TABLET PO SCH (06:18)
--- NOTE | 2019-08-31 07:49 | Orthopedic Progress Note ---
Date of Service August 31, 2019 Assessment & Plan (1) S/P total knee arthroplasty: POD #3, Left TKA PT/ OT DVT proph- Xarelto D/C panning- Home w OPPT As per medicine. She is having increased pain in her knee/leg, as well as c/o posterior leg/calf pain. will order US to eval for DVT. She was to be placed on Clindamycin x 7 days after discharge, since her d/c was held yesterday will start this PO this am, 300mg tid x 7 days. Subjective POD #3 she is having increased pain in her leg, also c/o pain in her calf and posterior thigh denies CP/SOB denies Fever/chills Review of Systems Constitutional: no fever and no chills Physical Exam Physical Exam: Vital Signs Temp 36.7 C 08/31/19 06:23 Pulse 74 08/31/19 06:23 Resp 16 08/31/19 06:23 BP 127/71 08/31/19 06:23 Pulse Ox 98 08/31/19 06:23 Intake & Output 08/30/19 08/31/19 08/31/19 18:59 06:59 18:59 Intake Total 935 / 935 Balance 935 / 935 Intake: Oral 935 / 935 Other: # Unmeasured Voi ds 1 Constitutional: WD/WN, vitals as above no acute distress Musculoskeletal: left leg: mild calf tenderness as well as popliteal fossa, she is able to wiggle her toes, DP+2, sensation intact. skin edges well approximated, scant crusted serous drainage around the proximal 2cm of the incision. gentle passive/active ROM no discomfort. Results & Data Vital Signs (Past 12 Hours) Vital Signs Temp Pulse Resp BP Pulse Ox 08/31/19 06:23 36.7 C 74 16 127/71 98 08/30/19 23:20 37.2 C 84 16 109/67 97 Laboratory Results Laboratory Results WBC 8.23 K/uL (4.8-10.8) 08/31/19 05:05 RBC 3.05 M/uL (4.2-5.4) L 08/31/19 05:05 Hgb 9.3 g/dL (12.0-16.0) L 08/31/19 05:05 Hct 29.4 % (37-47) L 08/31/19 05:05 MCV 96.4 fL (80-100) 08/31/19 05:05 MCH 30.5 pg (25-34) 08/31/19 05:05 MCHC 31.6 g/dL (32-36) L 08/31/19 05:05 RDW Std Deviation 49.6 fL (36.4-46.3) H 08/31/19 05:05 RDW Coeff of Deepa 14.2 % (11.5-14.5) 08/31/19 05:05 Plt Count 133 K/uL (130-400) 08/31/19 05:05 MPV 11.6 fL (7.4-10.4) H 08/31/19 05:05 Immature Gran % (Auto) 0.1 % 08/08/19 11:08 Neut % (Auto) 69.5 % 08/08/19 11:08 Lymph % (Auto) 23.1 % 08/08/19 11:08 [place] % (Auto) 5.9 % 08/08/19 11:08 Eos % (Auto) 1.0 % 08/08/19 11:08 Baso % (Auto) 0.4 % 08/08/19 11:08 Immature Gran # (Auto) 0.01 K/uL (0.00-0.02) 08/08/19 11:08 Neut # (Auto) 4.68 K/uL (1.4-6.5) 08/08/19 11:08 Lymph # (Auto) 1.56 K/uL (1.2-3.4) 08/08/19 11:08 [place] # (Auto) 0.40 K/uL (0.11-0.59) 08/08/19 11:08 Eos # (Auto) 0.07 K/uL (0-0.5) 08/08/19 11:08 Baso # (Auto) 0.03 K/uL (0-0.2) 08/08/19 11:08 PT 10.0 Seconds (9.0-12.0) 08/08/19 11:08 INR 1.0 (0.9-1.1) 08/08/19 11:08 APTT 24.0 Seconds (21.0-31.0) 08/08/19 11:08 PTT Ratio 0.9 08/08/19 11:08 Sodium 137 mmol/L (136-145) 08/30/19 04:56 Potassium 3.8 mmol/L (3.5-5.1) 08/30/19 04:56 Chloride 105 mmol/L (98-107) 08/30/19 04:56 Carbon Dioxide 27 mmol/L (21-32) 08/30/19 04:56 Anion Gap 5.0 (3-11) 08/30/19 04:56 BUN 11 mg/dl (7-18) 08/30/19 04:56 Creatinine 0.69 mg/dl (0.6-1.2) 08/30/19 04:56 Est Cr Clr Drug Dosing 87.4 ml/min 08/30/19 04:56 Est GFR ( Amer) 104.4 08/30/19 04:56 Est GFR (Non-Af Amer) 90.1 08/30/19 04:56 BUN/Creatinine Ratio 15.9 (10-20) 08/30/19 04:56 Glucose 148 mg/dl (70-99) H 08/30/19 04:56 POC Glucose 139 (70-99) H 08/31/19 06:21 Estimat Average Glucose 148 mg/dl 08/08/19 11:08 Hemoglobin A1c 6.8 % (4.5-5.6) H 08/08/19 11:08 Calcium 8.3 mg/dl (8.5-10.1) L 08/30/19 04:56 Albumin 3.3 gm/dl (3.4-5.0) L 08/08/19 11:08 Urine Color Yellow 08/08/19 11:08 Urine Appearance Cloudy (Clear) A 08/08/19 11:08 Urine pH 5.0 (4.5-7.5) 08/08/19 11:08 Ur Specific [place] 1.028 (1.000-1.030) 08/08/19 11:08 Urine Protein Negative (Negative) 08/08/19 11:08 Urine Glucose (UA) Negative (Negative) 08/08/19 11:08 Urine Ketones Trace (Negative) H 08/08/19 11:08 Urine Blood Negative (Negative) 08/08/19 11:08 Urine Nitrite Negative (Negative) 08/08/19 11:08 Urine Bilirubin Negative (Negative) 08/08/19 11:08 Urine Urobilinogen Negative (Negative) 08/08/19 11:08 Ur Leukocyte Esterase Trace (Negative) H 08/08/19 11:08 Urine WBC (Auto) 5-10 /hpf (0-5) H 08/08/19 11:08 Urine RBC (Auto) 5-10 /hpf (0-4) H 08/08/19 11:08 U Hyaline Cast (Auto) 1-5 /lpf (0-5) 08/08/19 11:08 U Epithel Cells (Auto) >30 /lpf (0-5) H 08/08/19 11:08 Urine Bacteria (Auto) 1+ (Negative) H 08/08/19 11:08 Urine Crystals Calcium Oxalate (None Prsent) A 08/08/19 11:08 Calcium Oxalate Crystal Present (None Prsent) A 08/08/19 11:08 Blood Type B Positive 08/08/19 11:08 Antibody Screen NEGATIVE 08/08/19 11:08
--- NOTE | 2019-08-31 08:53 | Ultrasound Report ---
US venous doppler LE LT CLINICAL HISTORY: Left leg pain COMPARISON STUDY: No previous studies for comparison. FINDINGS: Real-time and color flow Doppler imaging were performed. Flow was seen within the femoral, popliteal and calf veins with no intraluminal thrombus demonstrated. The saphenous vein is patent. IMPRESSION: No evidence of left lower extremity DVT. Electronically signed by: Miles Ahumada M.D. 08/31/2019 8:51 AM
[2019-08-31] MEDS: BusPIRone 15 MG TAB PO SCH ×2 (09:06→21:30)
[2019-08-31] MEDS: ESCITALOPRAM OXALATE 20 MG TAB PO SCH (09:07)
[2019-08-31] MEDS: ESCITALOPRAM OXALATE 10 MG TAB PO SCH (09:07)
[2019-08-31] MEDS: TOCOPHERYL, DL-ALPHA 400 UNITS CAP PO SCH (09:07)
[2019-08-31] MEDS: MULTIVITAMIN TAB PO SCH (09:07)
[2019-08-31] MEDS: CALCIUM CARBONATE 1250MG TAB PO SCH (09:07)
[2019-08-31] MEDS: lisinopriL 5 MG TAB PO SCH (09:08)
[2019-08-31] MEDS: RIVAROXABAN 10 MG TABLET PO SCH (09:08)
[2019-08-31] MEDS: DOCUSATE SODIUM 100 MG CAP PO SCH ×2 (09:12→21:35)
[2019-08-31] MEDS: CLINDAMYCIN HCL 150 MG CAP PO SCH ×3 (09:12→21:33)
[2019-08-31] MEDS: INSULIN ASPART 100 UNITS/ML 3 ML PEN SC SCH ×4 (09:15→21:59)
--- NOTE | 2019-08-31 17:32 | Hospitalist Progress Note ---
Date of Service August 31, 2019 Assessment & Plan (1) S/P total knee arthroplasty: - POD#[address] Wild - activity and wound care orders as per ortho - pain control with bowel regimen - PT/OT (2) Postoperative anemia: No indication for blood transfusion and asymptomatic. No overt bleeding, cont to monitor with CBC (3) Diabetes mellitus, type 2: -HgbA1c 6.8 08/08/19 -Hold glipizide -BSG at goal. Glycemic pharmacy consulted by ortho, appreciate pharmacy recommendations (4) HTN (hypertension): Cont lisinopril per home regimen. (5) Hypothyroidism: -Continue levothyroxine (6) Hyperlipidemia: -Continue atorvastatin (7) Sleep apnea: -CPAP as per home settings (8) Anxiety and depression: -Continue escitalopram, buspirone (9) DVT prophylaxis: -Xarelto Full Dispo-pending Surgery team, poss to rehab Thank you for the consultation. We will continue to follow this patient while she is hospitalized. DO [facility] Hopsital[facility] Subjective +leg pain/L hip pain afebrile no DVT on us tolerating PO Review of Systems Review of Systems: All systems reviewed & are unremarkable except as noted in HPI & below Physical Exam Physical Exam: Constitutional: no acute distress. Respiratory: normal respiratory effort, lungs clear to auscultation Cardiovascular: Rate/Rhythm: regular rate and regular rhythm Vessels: normal peripheral pulses Extremities: no edema Gastrointestinal (Abdomen): normal bowel sounds soft; abdomen nontender Musculoskeletal: S/P left knee surgery, dressing dry and intact, wound is closed with mandi and appears clean and dry without drainage. Drain has been removed Psychiatric: Orientation: alert and oriented x 3 Results & Data Vital Signs (Past 12 Hours) Vital Signs Temp Pulse Resp BP Pulse Ox 08/31/19 16:06 36.9 C 103/65 08/31/19 15:27 72 18 97/59 L 92 08/31/19 06:23 36.7 C 74 16 127/71 98 Laboratory Results Short CBC 08/31/19 Range/Units 05:05 WBC 8.23 (4.8-10.8) K/uL Hgb 9.3 L (12.0-16.0) g/dL Hct 29.4 L (37-47) % Plt Count 133 (130-400) K/uL Medications Administered Current Inpatient Medications Acetaminophen (Tylenol) 1,000 mg PO Q8 FTÁIMA Stop: 09/27/19 13:59 Last Admin: 08/31/19 13:46 Dose: 1,000 mg Documented by: Atorvastatin Calcium (Lipitor) 20 mg PO HS [facility] Stop: 09/27/19 20:59 Last Admin: 08/30/19 21:27 Dose: 20 mg Documented by: Bisacodyl (Dulcolax) 10 mg [place] DAILY PRN PRN Reason: Constipation Stop: 09/27/19 11:09 Buspirone HCl (Buspar) 15 mg PO BID [facility] Stop: 09/27/19 20:59 Last Admin: 08/31/19 09:06 Dose: 15 mg Documented by: Calcium Carbonate (Os-Chandana 500) 1,250 mg PO QAM [facility] Stop: 09/28/19 08:59 Last Admin: 08/31/19 09:07 Dose: 1,250 mg Documented by: Clindamycin HCl (Cleocin) 300 mg PO TID [facility] Stop: 09/01/19 08:59 Last Admin: 08/31/19 13:46 Dose: 300 mg Documented by: Dextrose (Dextrose 50%) 25 - 50 ml IV UD PRN; Protocol PRN Reason: Hypoglycemia Protocol Stop: 09/27/19 12:29 Diphenhydramine HCl (Benadryl Capsule) 25 mg PO Q8H PRN PRN Reason: Itching Stop: 09/27/19 11:09 Docusate Sodium (Colace) 100 mg PO BID [facility] Stop: 09/27/19 20:59 Last Admin: 08/31/19 09:12 Dose: 100 mg Documented by: Escitalopram Oxalate (Lexapro Tab) 10 mg PO QAM [facility] Stop: 09/28/19 08:59 Last Admin: 08/31/19 09:07 Dose: 10 mg Documented by: Escitalopram Oxalate (Lexapro Tab) 20 mg PO QAM [facility] Stop: 09/28/19 08:59 Last Admin: 08/31/19 09:07 Dose: 20 mg Documented by: Glucagon (Glucagen) 1 mg SQ UD PRN; Protocol PRN Reason: Hypoglycemia Protocol Stop: 09/27/19 12:29 Glucose (Glucose 40%) 15 - 30 gm PO UD PRN; Protocol PRN Reason: Hypoglycemia Protocol Stop: 09/27/19 12:29 Glucose (Dex4 Glucose) 4 - 8 tabs PO UD PRN; Protocol PRN Reason: Hypoglycemia Protocol Stop: 09/27/19 12:29 Hydromorphone HCl (Dilaudid) 0.5 mg IV Q4H PRN PRN Reason: Pain Stop: 09/11/19 11:09 Last Admin: 08/29/19 15:43 Dose: 0.5 mg Documented by: Insulin Aspart (Novolog Flexpen) 0 units SC [facility]; Protocol Stop: 09/27/19 12:29 Last Admin: 08/31/19 13:11 Dose: 3 units Documented by: [facility]othyroxine [facility] ([facility]throid) [facility] Stop: 09/28/19 06:29 Last Admin: 08/31/19 06:18 Dose: 50 mcg Documented by: Lisinopril (Zestril) 5 mg PO [facility] Stop: 09/28/19 08:59 Last Admin: 08/31/19 09:08 Dose: 5 mg Documented by: Magnesium Hydroxide (Milk Of Magnesia) 30 ml PO Q6H PRN PRN Reason: Constipation Stop: 09/27/19 11:09 Miscellaneous (Carbohydrates For Hypoglycemia) 15 - 30 gm PO UD PRN PRN Reason: Hypoglycemia Treatment Stop: 09/27/19 12:29 Miscellaneous Information (Consult Glycemic Management Pharmacy) 1 ea N/A UD PRN PRN Reason: Consult Stop: 09/27/19 11:20 Morphine Sulfate (Morphine Sulfate) 4 mg IV Q4H PRN PRN Reason: Pain Stop: 09/14/19 05:43 Last Admin: 08/31/19 07:15 Dose: 4 mg Documented by: Multivitamins (Multivitamin Tab) 1 tab PO [facility] Stop: 09/28/19 08:59 Last Admin: 08/31/19 09:07 Dose: 1 tab Documented by: Naloxone HCl (Narcan) 0.1 mg IV Q5M PRN PRN Reason: Oversedation/Resp Depression Stop: 09/27/19 11:09 Ondansetron HCl (Zofran) 4 mg IV Q6H PRN PRN Reason: Nausea And Vomiting Stop: 09/27/19 11:09 Oxycodone HCl (Roxicodone Immediate Rel) 5 - 10 mg PO Q4H PRN PRN Reason: Pain Stop: 09/11/19 11:09 Last Admin: 08/31/19 13:08 Dose: 10 mg Documented by: Rivaroxaban (Xarelto) 10 mg PO DAILY [facility] Stop: 09/28/19 08:59 Last Admin: 08/31/19 09:08 Dose: 10 mg Documented by: Sennosides (Senokot) 17.2 mg PO HS [facility] Stop: 09/27/19 20:59 Last Admin: 08/30/19 21:26 Dose: 17.2 mg Documented by: Vitamin B Complex (Vitamin B Complex) 1 tab PO DAILY PRN PRN Reason: IF NEEDING MORE ENERGY Vitamin E (Vitamin E) 800 units PO QAM [facility] Stop: 09/28/19 08:59 Last Admin: 08/31/19 09:07 Dose: 800 units Documented by:
[2019-08-31] MEDS: SENNA 8.6 MG TAB PO SCH (21:32)
[2019-08-31] MEDS: ATORVASTATIN 20 MG TAB PO SCH (21:32)
[2019-08-31 22:38] LABS: Appearance Urine Clear (Clear); Bilirubin Urine Negative (Negative); Blood Urine Negative (Negative); Color Urine Yellow; Glucose Urine UA Negative (Negative); Ketones Urine Negative (Negative); Leukocyte Esterase Urine Negative (Negative); Nitrite Urine Negative (Negative); Protein Urine Negative (Negative); Specific Gravity Urine 1.012 (1.000-1.030); Urobilinogen Urine Negative (Negative)
[2019-09-01] MEDS: ACETAMINOPHEN 500 MG TAB PO SCH ×2 (05:40→14:24)
[2019-09-01] MEDS: LEVOTHYROXINE SODIUM 50 MCG TABLET PO SCH (05:40)
[2019-09-01] MEDS: OXYCODONE HCL IR 5 MG TAB (IMMEDIATE RELEASE) PO PRN ×3 (05:44→15:16)
--- NOTE | 2019-09-01 08:12 | Orthopedic Progress Note ---
Date of Service September 01, 2019 Assessment & Plan (1) S/P total knee arthroplasty: POD #4, Left TKA PT/ OT DVT proph- Xarelto D/C panning-patient now requesting rehab facility. Will discuss with case management. As per medicine. She was to be placed on Clindamycin x 7 days after discharge, since her d/c was held yesterday will start this PO this am, 300mg tid x 7 days. Subjective Postop day 4 status post left total knee arthroplasty. Patient is awake and alert this morning. No overt complaints. Pain is controlled at rest. Ultrasound ordered was negative for DVT. She denies any shortness of breath, chest pain, lightheadedness. She states now that she would like to try to go to a rehab facility if possible. She feels she will not be able to do well at home. Physical Exam Physical Exam: Patient is awake and alert. Incision is clean, dry, and intact. Calves are soft and nontender. Neurovascular is intact. Toes are mobile. Results & Data Vital Signs (Past 12 Hours) Vital Signs Temp Pulse Resp BP Pulse Ox 09/01/19 06:31 36.9 C 71 16 115/72 95 08/31/19 23:20 37.0 C 75 16 101/66 95 Diagnostic Findings Patient: APOLINAR OTTO Date: 08/28/19 MR#: [id number]: [address] Acct ID:[id number]: Date: [address] [place] [address] Zip: [place] [address] Age: 68Location: 3W Sex: F Room/Bed: [facility] Att Phy: Wilman Wild M.D.Diagnosis: Primary Osteoarthritis, Left Knee Genevieve Phy: Rochelle Varner-CService Date: 08/31/19 Fam Phy:Interpreting Phy: Miles Ahumada MD Admit Phy: Wilman Wild M.D. Ordering Phy: Ken Thompson cc: ~ US venous doppler LE LT CLINICAL HISTORY: Left leg pain COMPARISON STUDY: No previous studies for comparison. FINDINGS: Real-time and color flow Doppler imaging were performed. Flow was seen within the femoral, popliteal and calf veins with no intraluminal thrombus demonstrated. The saphenous vein is patent. IMPRESSION: No evidence of left lower extremity DVT. Electronically signed by: Miles Ahumada M.D. 08/31/2019 8:51 AM Dictated: 08/31/19 0851 Transcribed: 08/31/19 0851
[2019-09-01] MEDS: RIVAROXABAN 10 MG TABLET PO SCH (08:40)
[2019-09-01] MEDS: PHENAZOPYRIDINE HCL 100 MG TAB PO SCH ×2 (08:40→14:24)
[2019-09-01] MEDS: MULTIVITAMIN TAB PO SCH (08:40)
[2019-09-01] MEDS: ESCITALOPRAM OXALATE 10 MG TAB PO SCH (08:41)
[2019-09-01] MEDS: TOCOPHERYL, DL-ALPHA 400 UNITS CAP PO SCH (08:41)
[2019-09-01] MEDS: BusPIRone 15 MG TAB PO SCH (08:41)
[2019-09-01] MEDS: lisinopriL 5 MG TAB PO SCH (08:41)
[2019-09-01] MEDS: CALCIUM CARBONATE 1250MG TAB PO SCH (08:41)
[2019-09-01] MEDS: ESCITALOPRAM OXALATE 20 MG TAB PO SCH (08:41)
[2019-09-01] MEDS: INSULIN ASPART 100 UNITS/ML 3 ML PEN SC SCH ×2 (08:44→12:39)
[2019-09-01] MEDS: DOCUSATE SODIUM 100 MG CAP PO SCH (08:46)
--- NOTE | 2019-09-01 09:50 | Pharmacy Report ---
PHA: Glycemic Control AP - Date of Service September 01, 2019 - Assessment & Plan The patient is currently receiving 14 units of insulin per day. BSGs ranging 119 - 139 mg/dl over the past 24hrs. * Basal insulin: N/A- not needed * Correctional Insulin: Novolog Correction per scale ACHS Goal Range: Low 110 mg/dL - High 140 mg/dL Correction Factor: 25 mg/dL/unit * Prandial insulin: Per carb ratio of 1 unit per 7 grams CHO consumed BSGs continue to improve, no changes needed to inpatient regimen at this time. Pharmacy will continue to monitor patient daily and write orders per [facility] inpatient glycemic control protocol. Thanks. Patient can resume her outpatient glipizide at discharge. * Please note that the plan above was derived based on current level of insulin resistance and hospital stress. These recommendations are appropriate for inpatient admission only. Plan of care upon discharge will need to be reassessed to avoid potential outpatient hypo/hyperglycemia.
--- NOTE | 2019-09-02 11:31 | Hospitalist Progress Note ---
Date of Service September 01, 2019 Assessment & Plan (1) S/P total knee arthroplasty: - POD#[address] Wild - activity and wound care orders as per ortho - pain control with bowel regimen - PT/OT (2) Postoperative anemia: No indication for blood transfusion and asymptomatic. H/H stable. No bleeding. (3) Diabetes mellitus, type 2: -HgbA1c 6.8 08/08/19 -Hold glipizide -BSG at goal. Glycemic pharmacy consulted by ortho, appreciate pharmacy recommendations (4) HTN (hypertension): Cont lisinopril per home regimen. (5) Hypothyroidism: -Continue levothyroxine (6) Hyperlipidemia: -Continue atorvastatin (7) Sleep apnea: -CPAP as per home settings (8) Anxiety and depression: -Continue escitalopram, buspirone (9) DVT prophylaxis: -Xarelto Full Dispo-pending Surgery team, poss to rehab today Thank you for the consultation. We will continue to follow this patient while she is hospitalized. Ellen Stewart DO [facility] Hopsitalist Subjective feeling well denies pain at this time, resolved from yesterday ambulating with assistance afebrile tolerating PO mentating clearly. Review of Systems Review of Systems: All systems reviewed & are unremarkable except as noted in HPI & below Physical Exam Physical Exam: Constitutional:no acute distress. Respiratory: normal respiratory effort, lungs clear to auscultation Cardiovascular: regular rate and regular rhythm, normal peripheral pulses no edema. Gastrointestinal: normal bowel sounds soft; abdomen nontender Musculoskeletal: S/P left knee surgery, dressing dry and intact, wound is closed with mandi and appears clean and dry without drainage. Drain has been removed Psychiatric: Orientation: alert and oriented x 3
--- NOTE | 2019-09-08 23:17 | Discharge Summary ---
HISTORY OF PRESENT ILLNESS: This is a 68-year-old female patient of Dr. Wild'goran complaining of chronic left knee pain, longstanding, now progressively getting worse. The patient failed conservative treatment and was diagnosed with end-stage osteoarthritis per clinical and radiographic exams. The patient had elected to proceed with a left total knee arthroplasty. PAST MEDICAL HISTORY: Heart murmur, sleep apnea with the use of CPAP, anxiety, diabetes mellitus, hypothyroidism, spine problems, sciatica, obesity, and dental issues. POSTOPERATIVE COURSE: The patient underwent a left total knee arthroplasty on 08/28/2019. She was followed closely with medical consultation, DVT prophylaxis in the form of Xarelto, physical therapy and pain control. On postoperative day #2, she started to have some pain issues as well as increased pain and swelling in her leg. On postoperative day #3, an ultrasound was ordered; this was negative for DVT prophylaxis. On postoperative day #3, there was also some noticeable scant drainage from the proximal incision. There was no redness or erythema, just the drainage. The patient on postoperative day #4, her pain was controlled much better. Her ultrasound was negative for DVT. However, instead of going home, she decided she wanted to go to rehab or a jail facility as she did not think her would be able to take care of her. The patient was discharged on postoperative day #4 to [facility]. PHYSICAL EXAMINATION ON DISCHARGE: EXTREMITIES: Left knee incision was clean, dry and intact with just some scant clear drainage from the proximal incision. There was no redness or erythema, no calf tenderness. Negative Homans sign. Toes and ankle were mobile. Neurologically and neurovascularly, she was intact in the left lower extremity. DIAGNOSES: Status post left total knee arthroplasty, heart murmur, sleep apnea with the use of CPAP, anxiety, diabetes mellitus, hypothyroidism, spine problems, sciatica, obesity, and dental issues. PLAN: The patient was transferred to [facility] on discharge. Her pain was controlled on discharge. Her ultrasound was negative for DVT. She will continue her preadmission medications with the addition of Xarelto for DVT prophylaxis and she will add pain medications. The patient will follow up as scheduled as an outpatient.
== END 2019-09-01 16:47 | DRG 470 ==
LOC: ASU 04:51 → 3W 09:27